=== PATIENT | female | born 1975 | race Caucasian/White ===

== ENCOUNTER → 2017-02-25 | Outpatient (CLI) | payer BC ==
[~2017-02-25] MED LIST: ATR10 PO; CYAN3INJ IM; ERGO1CAP35 PO; FERR1TAB23 PO; PRT/20 PO; SERT50TA PO; ZNTT/150 PO
[2017-02-25 10:50] LABS: THYROID STIMULATING HORMONE 1.2 uIu/ml (0.300-4.500)
== END | disposition home or self-care (01) ==
LOC: C.LAB1850 09:26
PROVIDERS: ATTEND Internal Medicine Endocrinology, Diabetes & Metabolism
DX: R94.6 Abnormal results of thyroid function studies (principal)